=== PATIENT | female | born 1985 | race Caucasian/White ===

== ENCOUNTER 2017-10-19 13:55 | Emergency (ER) | payer MEDICARE, SELFPAY ==
[2017-10-19 13:57] VITALS: BP 122/87; PULSE 80; RESP 14; TEMP 37; O2SAT 99; BMI 20.5
--- NOTE | 2017-10-19 14:28 | XR_ITS ---
XR chest AP Ordering Physician: Julien Molina MD Patient Age: 32 years: Female HISTORY: ITS.REASON: ams. Altered mental status Mental status changes TECHNIQUE: AP portable upright chest COMPARISON :. No previous chest films available FINDINGS heart is upper normal in size likely accentuated by the AP projection. Borderline cardiomegaly on this image. The pulmonary vascularity appears normal to upper normal. Left lung is clear unremarkable. There is some mild crowding markings at the right infrahilar region reflect atelectasis. Cannot exclude a minimal streaky infiltrate. Ribs are intact. Mild Scoliosis at the T-spine and into the upper lumbar spine == IMPRESSION: ========= Nothing definite acute. Borderline cardiomegaly. Upper normal markings at the right infrahilar region most likely reflecting a atelectasis. Difficult to only exclude early infiltrate
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
--- NOTE | 2017-10-19 14:30 | [facility].EDGENADL ---
ED Disposition Clinical Impression: Influenza A, Vomiting Disposition: Home, Self-Care Condition on Discharge: Good Instructions: DI for Diarrhea and Traveler's Diarrhea -- Adult, DI for Nausea -- Adult, DI for Influenza -- Adult Additional Instructions: Tylenol or ibuprofen for aches and pains. Rest and plenty of fluids. Phenergan as needed for nausea or vomiting, or Zofran that was called in by her family physician. Additional instructions for UPPER RESPIRATORY INFECTION: Return immediately if you have an uncontrollable fever greater than 104 degrees, difficulty breathing or shortness of breath, persistent vomiting, or inability to swallow. - Critical Care Critical Care Time: No Attestation: On , the high probability of a clinically significant, sudden or life threatening deterioration of the following system(s) required my full and direct attention, intervention and personal management. The time I documented below is in addition to time spent performing reported procedures but includes the following listed in this critical care notation. Medical Decision Making Vital Signs: 10/19/17 13:57 10/19/17 15:57 Temperature 98.6 F 98.1 F Temperature Source Oral Oral Pulse Rate [Right Brachial] 80 88 Respiratory Rate 14 18 Blood Pressure [Right Arm] 122/87 123/59 Blood Pressure Mean [Right Arm] 98 80 Blood Pressure Source [Right Arm] Automatic Cuff Automatic Cuff Blood Pressure Position [Right Arm] Sitting Supine 02 Sat by Pulse Oximetry 99 98 Oxygen Delivery Method Room Air Room Air - Lab Data Lab Results 10/19/17 13:57: Urine Color Yellow, Urine Appearance Clear, Urine pH 7.5, Ur Specific H[place]and 1.020, Urine Protein Trace, Urine Glucose (UA) Negative, Urine Ketones 1+, Urine Blood Negative, Urine Nitrate Negative, Urine Bilirubin Negative, Urine Urobilinogen 1.0, Ur Leukocyte Esterase Negative, Urine RBC Occasional, Urine WBC 3-5, Ur Squamous Epith Cells Occasional, Urine Bacteria 1+, Urine Mucus 1+ 10/19/17 15:25: Urine HCG, Qual Negative, Influenza Type A Ag Positive A, Influenza Type B Ag Negative 10/19/17 15:25: Urine Opiates Screen Positive H, Ur Barbituates Screen Negative, Ur Phencyclidine Scrn Negative, Ur Amphetamines Screen Negative, U Methamphetamines Scrn Negative, U Benzodiazepines Scrn Negative, Urine Cocaine Screen Negative, U Marijuana (THC) Screen Negative 10/19/17 15:30: WBC 8.3, RBC 4.54, Hgb 13.9, Hct 43.4, MCV 95.6, MCH 30.6, MCHC 32.0, RDW 14.1, Plt Count 160, MPV 8.3, Neut % (Auto) 93.1 H, Lymph % (Auto) 4.5 L, Benzie % (Auto) 1.8, Eos % (Auto) 0.3, Baso % (Auto) 0.3, Neut # (Auto) 7.7, Lymph # (Auto) 0.4 L, Benzie # (Auto) 0.2, Eos # (Auto) 0.0, Baso # (Auto) 0.0, Total Counted 100, Neutrophils % (Manual) 94 H, Lymphocytes % (Manual) 5 L, Monocytes % (Manual) 1 L, Platelet Estimate Normal, RBC Morphology Normal 10/19/17 15:30: Sodium 141, Potassium 4.5, Chloride 106, Carbon Dioxide 27, Anion Gap 12.5, BUN 13, Creatinine 0.72, Estimated Creat Clear 98, Estimated GFR 95, Est GFR ( Amer) 115, Glucose 102, Calcium 8.6, Total Bilirubin 0.5, AST 57 H, ALT 91 H, Alkaline Phosphatase 83, Total Protein 7.1, Albumin 3.9, Globulin 3.2, Albumin/Globulin Ratio 1.2, Amylase 97, Lipase 96, Salicylates < 0.2 L, Acetaminophen 0 L, Total Valproic Acid < 0.7 L*, Plasma/Serum Alcohol 0 10/19/17 15:30: Total Creatine Kinase 93, CK-MB (CK-2) 0.9, CK-MB (CK-2) Rel Index 1.0, Troponin I < 0.02 10/19/17 17:30: Troponin I < 0.02 Result diagrams: 10/19/17 15:30 10/19/17 15:30 Orders (Tests/Meds): ED MEDICATIONS Discontinued Medications Generic Name Dose Route Start Last Admin Trade Name Freq PRN Reason Stop Dose Admin Promethazine HCl 12.5 mg 10/19/17 14:45 10/19/17 15:28 Phenergan 25mg/Ml 1ml Vial IV 10/19/17 14:46 12.5 mg ONCE ONE Administration Sodium Chloride 25 ml 10/19/17 14:45 10/19/17 15:28 Sod Chlor 0.9% 25ml Bag IV 10/19/17 14:46 25 ml ONCE ONE Administration Sodium Chlorid
--- NOTE | 2017-10-19 15:32 | PC.NURSE ---
PT HAS CONFLICTING STORIES ABOUT HER INITIAL COMPLAINT FOR NAUSEA/VOMITING/DIARRHEA. EACH TIME STAFF ENTERS ROOM, PT C/O SOMETHING DIFFERENT. NOTIFIED.
[2017-10-19 15:33] LABS: Microscopic, Urine URINE MICROSCOPIC (MICROSCOPIC)
[2017-10-19 15:40] LABS: Appearance,Urine CLEAR (Clear); Bilirubin,Urine Negative (Negative); Blood, Urine Negative (Negative); Color,Urine YELLOW (Yellow); Glucose,Urine (UA) Negative (Negative); Ketones,Urine 1+ (Negative); Leukocyte Esterase,Urine Negative (Negative); Nitrate,Urine Negative (Negative); PH,Urine 7.5 (5.0-8.5); Protein,Urine TRACE (Negative)
[2017-10-19 15:40] LABS: Basophils % 0.3 % (0.1-2.0); Eosinophils % 0.3 % (0.1-12.0); Hematocrit 43.4 % (37.0-47.0); Hemoglobin 13.9 g/dL (12.2-16.2); Lymphocytes # 0.4 K/mm3 (0.7-4.5); Lymphocytes % 4.5 K/mm3 (10-50); Mean Corpuscular Hemoglobin 30.6 pg (27.0-31.2); Mean Corpuscular Volume 95.6 fl (81-99); Mean Platelet Volume 8.3 fl (7.4-10.4); Monocytes # 0.2 K/mm3 (0.1-1.0); Monocytes % 1.8 % (1.7-9.3); Neutrophils # 7.7 K/mm3 (1.8-7.8); Neutrophils % 93.1 % (37.0-80.0); Platelet Count 160 K/mm3 (142-424); Red Blood Count 4.54 M/mm3 (4.20-5.40); Red Cell Distribution Width 14.1 % (11.5-17.5); White Blood Count 8.3 K/mm3 (4.8-10.8)
[2017-10-19 15:44] LABS: Urine Pregnancy, HCG Qual. Negative (Negative)
[2017-10-19 15:44] LABS: MANUAL DIFFERENTIAL MANUAL DIFFERENTIAL (MANUAL DIFF)
[2017-10-19 15:49] LABS: Amphetamine/Metha Screen,Urine Negative ng/mL (<1000); Barbiturates Screen,Urine Negative ng/mL (<200); Benzodiazepines Screen,Urine Negative ng/mL (200); Cannabinoid Screen,Urine Negative ng/mL (<50); Cocaine Screen,Urine Negative ng/g (<300); Methadone Screen,Urine Negative ng/mL (<300); Opiate Screen,Urine Positive ng/mL (<300); Phencyclidine Screen,Urine Negative ng/mL (<25)
[2017-10-19 15:57] VITALS: BP 123/59; PULSE 88; RESP 18; TEMP 36.7; O2SAT 98
[2017-10-19 15:57] LABS: Bacteria,Urine 1+ /lpf; Mucus,Urine 1+ /lpf; RBC,Urine Occasional #/hpf (0-3); Squamous Epithelial Cell,Urine Occasional #/hpf (0-5)
[2017-10-19 16:03] LABS: Alanine Aminotransferase 91 U/L (12-78); Albumin Level 3.9 gm/dL (3.4-5.0); Albumin/Globulin Ratio 1.2 (1.1-1.8); Alkaline Phosphatase 83 U/L (46-116); Amylase 97 U/L (25-125); Anion Gap 12.5 mEq/L (5-15); Aspartate Amino Transferase 57 U/L (15-37); Bilirubin,Total 0.5 mg/dL (0.2-1.0); Blood Urea Nitrogen 13 mg/dL (7-18); Calcium 8.6 mg/dL (8.5-10.1); Carbon Dioxide 27 mmol/L (21.0-32.0); Chloride 106 mmol/L (98-107); Creatinine Clearance Estimated 98 mL/min (0-300); Creatinine,Serum 0.72 mg/dL (0.55-1.02); Estimated Glomerular Filt Rate 95 ml/min (>60); GFR (African American) 115 ML/MIN (>60); Globulin 3.2 gm/dl (1.3-3.2); Glucose 102 mg/dL (74-106); Lipase 96 u/L (73-393); Potassium 4.5 mmoL/L (3.5-5.1); Sodium 141 mmol/L (136-145); Total Protein,Serum 7.1 gm/dL (6.4-8.2)
[2017-10-19 16:08] LABS: Lymphocytes % 5 % (10-50); Monocytes % 1 % (2-9); Neutrophils % 94 % (42-76); Platelet Estimate Normal; RBC Morphology Normal; Total Cells Counted 100
[2017-10-19 16:09] LABS: Creatine Kinase 93 U/L (26-192); Creatine Kinase MB 0.9 mg/ml (0.0-3.6); Ethyl Alcohol 0 mg/dL (0-99); Troponin I < 0.02 ng/ml (0.00-0.06)
[2017-10-19 16:10] LABS: Acetaminophen 0 ug/mL (10-30); Salicylate < 0.2 mg/dL (2.8-20.0); Valproic Acid, (Depakene) < 0.7 ug/mL (50-100)
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
[2017-10-19 17:57] LABS: Troponin I < 0.02 ng/ml (0.00-0.06)
[2017-10-19 18:17] VITALS: BP 115/75; PULSE 82; RESP 18; TEMP 36.8
--- NOTE | 2017-10-19 18:57 | PC.NURSE ---
Pt has called multiple times, and staff has informed him multiple times that patient is ready for discharge.
--- NOTE | 2017-10-19 20:07 | PC.NURSE ---
called 's phone number and left a message to knot picker cloth Ms. Tavarez.
== END 2017-10-19 20:45 | disposition home or self-care (01) ==
PROVIDERS: Emergency Provider Emergency Medicine
DX: J10.1 Influenza due to other identified influenza virus with other respiratory manifestations (principal); M79.671 Pain in right foot; M79.672 Pain in left foot
CPT/HCPCS: 36415; 70450; 71045; 73630; 80053; 80164; 80305; 80329; 81001; 81025; 82150; 82550; 82553; 83690; 84484; 85007; 85025; 87275; 87276; 93005; 93041; 96365; 96374; 99284